=== PATIENT | female | born 1985 | race Caucasian/White ===

== ENCOUNTER → 2017-11-15 | Day surgery (SDC) | payer MEDICARE, OTHER ==
[~2017-11-15] MED LIST: LIDOCAINE 1% PF 2 ML VIAL.; LIDOCAINE 1% PF 2 ML VIAL. ID; MORPHINE SULFATE 4 MG/ML DISP.SYRIN. IV; ONDANSETRON PF 4 MG/2 ML VIAL. IV; PROCHLORPERAZINE 10 MG/2 ML VIAL. IV; PROPOFOL 20 ML IV; fentaNYL PF VIAL 100 MCG/2 ML VIAL IV
[2017-11-15] MEDS: IV RINGERS,LACTATED 1000ML 1,000 ML IV (10:18)
[2017-11-15 11:18] LABS: NEG OBC UR NEG; POS OBC UR POS; U PREG PATIENT NEGATIVE (NEG)
== END | disposition home or self-care (01) ==
LOC: ENDOS 09:54
DX: K21.0 Gastro-esophageal reflux disease with esophagitis (principal); K31.7 Polyp of stomach and duodenum; K29.50 Unspecified chronic gastritis without bleeding; F41.9 Anxiety disorder, unspecified; F32.9 Major depressive disorder, single episode, unspecified; F20.9 Schizophrenia, unspecified; Z83.3 Family history of diabetes mellitus; Z87.891 Personal history of nicotine dependence; Z79.899 Other long term (current) drug therapy; Z88.8 Allergy status to other drugs, medicaments and biological substances
CPT/HCPCS: 43239; 81025; 88305; 88342; J2704

== ENCOUNTER → 2018-09-05 | Day surgery (SDC) | payer MEDICARE, OTHER ==
[~2018-09-05] MED LIST changes: +ILOP12TA2 PO; +IV RINGERS,LACTATED 1000ML 1,000 ML IV SCH; +LEXAPRO10 MG PO; -LIDOCAINE 1% PF 2 ML VIAL.; -LIDOCAINE 1% PF 2 ML VIAL. ID; +LIDOCAINE 1% PF 2 ML VIAL. ID PRN; +MIDAZOLAM HCL/PF 2 MG/2 ML VIAL. IV PRN; -MORPHINE SULFATE 4 MG/ML DISP.SYRIN. IV; -ONDANSETRON PF 4 MG/2 ML VIAL. IV; +OXCA150T3 PO; +PANT20TA2 PO; -PROCHLORPERAZINE 10 MG/2 ML VIAL. IV; -PROPOFOL 20 ML IV; +PROPOFOL 40 ML IV ONE; +RANI-348 PO; -fentaNYL PF VIAL 100 MCG/2 ML VIAL IV; +fentaNYL PF VIAL 100 MCG/2 ML VIAL IV PRN
[2018-09-05 10:25] LABS: U PREG PATIENT NEGATIVE (NEG)
[2018-09-05 10:30] VITALS: BP 118/71
--- NOTE | 2018-09-05 11:08 | PREOP HP ---
DATE OF SERVICE: 09/05/2018 REQUESTING PHYSICIAN: Dr. Justus Wetzel. PRIMARY CARE PHYSICIAN: Dr. Justus Wetzel. REASON FOR PROCEDURE: Change in bowel habits and rectal bleeding. HISTORY OF PRESENT ILLNESS: This is a 33-year-old female who presents today for change in bowel habits and rectal bleeding. She is to undergo colonoscopy for further evaluation. ALLERGIES: No known drug allergies. PAST MEDICAL HISTORY: 1. Anxiety. 2. Depression. 3. Schizoaffective schizophrenia. 4. Biliary dyskinesia. 5. Anal fissure. FAMILY MEDICAL HISTORY: Significant for diabetes and ovarian cancer. MAR reviewed. REVIEW OF SYSTEMS: A 13-point review of systems was done. It is positive as per HPI and otherwise negative. PHYSICAL EXAMINATION: VITAL SIGNS: She is afebrile and her vital signs are stable. GENERAL: She is an obese female, in no apparent distress. HEENT: Oropharynx is clear. CARDIOVASCULAR: S1, S2. LUNGS: Clear. ABDOMEN: Normoactive bowel sounds. Soft, nontender and nondistended. EXTREMITIES: No edema. NEUROLOGIC: Awake, oriented x 3. ASSESSMENT AND PLAN: 1. Change in bowel habits. We will proceed with a colonoscopy for further evaluation. The risks and benefits including bleeding, perforation, non-diagnosis and sedation were explained and she has agreed to proceed. 2. Rectal bleeding. We will evaluate at the time of her procedure. SEGUNDO FLOYD MD DR: MAXI/sheryl JOB#: [id number] / [id number]
--- NOTE | 2018-09-06 17:10 | PATHOLOGY ---
[facility] Accession Number: [id number] . 01 Material submitted: . PART A: TERMINAL ILEUM BIOPSY PART B: RIGHT COLON BIOPSY PART C: LEFT COLON BIOPSY PART D: RECTAL BIOPSY . 01 Clinical history: . Rectal bleeding . 02 Diagnosis: A. Small intestine mucosa, terminal ileum biopsy: - No diagnostic abnormalities. . B. Colonic mucosa, right colon biopsy: - No diagnostic abnormalities. . C. Colonic mucosa, left colon biopsy: - No diagnostic abnormalities. . D. Colorectal mucosa, rectal biopsy: - No diagnostic abnormalities. . (JPM:mm; 09/06/2018) [facility]/09/06/2018 . 02 Comment: Sections of the terminal ileum biopsy (A) reveal a segment of small intestine mucosa with focal mucosal-associated lymphoid tissue. The mucosal villi appear normal. There are no sprue-like changes or significant inflammatory changes. . Sections of the right colon and left colon biopsies reveal multiple segments of colonic mucosa containing several mucosal-associated lymphoid aggregates. There is no evidence of a chronic destructive colitis, lymphocytic colitis, or collagenous colitis. Sections of the rectal biopsy reveal segments of rectal mucosa showing superficial epithelial reactive changes. There is no evidence of a chronic destructive colitis, lymphocytic colitis, or collagenous colitis. . (JPM:mml; 09/06/2018) . 02 Electronically signed: . Maynor Ramirez MD, Pathologist NPI- [id number] . 01 Gross description: . A. Received in formalin labeled "Evelyn Corral, terminal ileum BX," is a single segment of xiong soft tissue measuring 0.5 cm in maximum dimension. The specimen is entirely submitted in cassette A1. . B. Received in formalin labeled "Evelyn Corral, right colon BX," are 5 segments of xiong soft tissue measuring 1.8 x 0.9 x 0.2 cm in aggregate dimensions and ranging from 0.3 to 0.8 cm in maximum dimension. The specimen is submitted entirely in cassette B1. . C. Received in formalin labeled "Evelyn Corral, left colon BX," are 3 segments of xiong soft tissue measuring 0.9 x 0.7 x 0.3 cm in aggregate dimensions and ranging from 0.4 to 0.5 cm in maximum dimension. The specimen is submitted entirely in cassette C1. . D. Received in formalin labeled "Evelyn Corral, rectal BX," are 3 segments of xiong soft tissue measuring 0.9 x 0.6 x 0.2 cm in aggregate dimensions and ranging from 0.2 to 0.5 cm in maximum dimension. The specimen is submitted entirely in cassette D1. (TSD; 09/05/2018) TOB/TOB . 02 Pathologist provided ICD-10: K62.5 . 02 CPT . 870443, 794525, 802728, [id number] Specimen Comment: A courtesy copy of this report has been sent to Specimen Comment: [phone], . Specimen Comment: Report sent to / DR TORRES Performed at: [address] [facility], [place] [id number] MD Miguel Gilliland MD Phone: [phone] Performed at: [facility] [address] [place], [place] [id number] MD aMynor Ramirez MD Phone: [phone]
== END | disposition home or self-care (01) ==
LOC: ENDOS 08:29
PROVIDERS: ATTEND Internal Medicine Gastroenterology
DX: K64.0 First degree hemorrhoids (principal); K63.89 Other specified diseases of intestine; K62.89 Other specified diseases of anus and rectum; F41.9 Anxiety disorder, unspecified; F32.9 Major depressive disorder, single episode, unspecified; F25.9 Schizoaffective disorder, unspecified; Z83.3 Family history of diabetes mellitus; Z80.41 Family history of malignant neoplasm of ovary; Z88.8 Allergy status to other drugs, medicaments and biological substances
CPT/HCPCS: 45380; 81025; 88305; J2704